=== PATIENT | female | born 1965 | race Caucasian/White ===

== ENCOUNTER 2018-09-09 13:53 | Observation (INO) ==
[2018-09-09 14:29] LABS: Basophils % 0.5 % (0.0-0.8); Eosinophils # 0.1 10*3/uL (0.0-0.87); Eosinophils % 0.7 % (0.00-10.9); Hematocrit 40.5 VOL% (35.7-47.0); Hemoglobin 13.1 GM/DL (12.0-16.0); Immature Granulocytes % 0.5 %; Immature Granulocytes Absolute 0.04 #; Lymphocytes # 1.6 10*3/uL (1.4-4.0); Mean Corpuscular HGB Conc 32.3 GM/DL (32-36); Mean Corpuscular Volume 99.3 FL (87-102); Mean Platelet Volume 11.1 FL (9.6-12.0); Monocytes % 3.6 % (1.7-12.7); Neutrophils % 74.7 % (38.7-73.9); Platelet Count 226 T/CUMM (130-400); Red Blood Count 4.08 MC/CUMM (3.8-5.5); Red Cell Distribution Width 13.5 % (9.3-17.3); White Blood Count 8.1 T/CUMM (4-12)
[2018-09-09] MEDS: NITROGLYCERIN SL 0.4 MG TABLET SL PRN ×2 (14:48→15:13)
[2018-09-09 14:50] LABS: Alanine Aminotransferase 12 U/L (13-56); Albumin 4.1 G/DL (3.4-5.0); Alkaline Phosphatase 87 U/L (45-117); Aspartate Amino Transferase 13 U/L (0-37); Bilirubin,Total < 0.39 MG/DL (0.2-1.0); Blood Urea Nitrogen 7 MG/DL (7-18); Calcium 8.9 MG/DL (8.5-10.1); Glucose 117 MG/DL (74-106); Osmolality,Calculated 281.1 MOS/KG (273-304)
[2018-09-09] MEDS ORDERED: ENOXAPARIN 100 MG/ML SYRINGE SUBCUT STA (14:53)
[2018-09-09] MEDS ORDERED: LACTULOSE 20 GM/30 ML UDCUP PO PRN (16:10)
[2018-09-09] MEDS ORDERED: ACETAMINOPHEN 325 MG TABLET PO PRN (16:10)
[2018-09-09] MEDS ORDERED: ONDANSETRON 4 MG/2 ML VIAL IV PRN (16:10)
[2018-09-09] MEDS ORDERED: ALBUTEROL/IPRATROPIUM 3 ML NEB RESP TX PRN (16:57)
[2018-09-09 17:14] LABS: Risk Ratio 2.33; Thyroid Stimulating Hormone 0.853 uIU/ml (0.358-3.74); VLDL CHOLESTEROL 20.4 MG/DL
[2018-09-09 19:14] LABS: Apearance,Urine CLEAR (Clear); Bilirubin,Urine Negative (Negative); Blood, Urine Negative (Negative); Glucose,Urine (UA) Negative (Negative); Ketones,Urine Negative (Negative); Nitrite,Urine Negative (Negative); Protein,Urine Negative; RBC,Urine 1 /HPF (0-4); Squamous Epithelial Cell,Urine Occasional /HPF (0-10); Urine Color Straw (Yellow); Urine Specific Gravity 1.026 (1.001-1.035); Urine Urobilinogen < 2.0 EU/DL (0.2-1.0); WBC,Urine <1 /HPF (0-6)
[2018-09-09] MEDS: NICOTINE 21 MG/24 HR PATCH TRANSDERM SCH (20:50)
[2018-09-09] MEDS ORDERED: ENOXAPARIN 40 MG/0.4 ML SYRINGE SUBCUT SCH (21:00)
[2018-09-09 22:42] LABS: Barbiturates Screen,Urine Negative (Negative); Benzodiazepines Screen,Urine Negative (Negative); Cannabinoid Screen,Urine Negative (Negative); Opiate Screen,Urine Positive (Negative); Phencyclidine Screen,Urine Negative (Negative)
[2018-09-10] MEDS ORDERED: ZALEPLON 5 MG CAPSULE PO PRN (00:48)
[2018-09-10 05:46] LABS: Basophils % 0.5 % (0.0-0.8); Eosinophils # 0.1 10*3/uL (0.0-0.87); Eosinophils % 1.5 % (0.00-10.9); Hematocrit 38.6 VOL% (35.7-47.0); Hemoglobin 12.3 GM/DL (12.0-16.0); Immature Granulocytes % 0.8 %; Immature Granulocytes Absolute 0.06 #; Lymphocytes # 3.9 10*3/uL (1.4-4.0); Mean Corpuscular HGB Conc 31.9 GM/DL (32-36); Mean Corpuscular Volume 100.3 FL (87-102); Mean Platelet Volume 11.3 FL (9.6-12.0); Neutrophils % 41.2 % (38.7-73.9); Platelet Count 216 T/CUMM (130-400); Red Blood Count 3.85 MC/CUMM (3.8-5.5); Red Cell Distribution Width 13.7 % (9.3-17.3); White Blood Count 7.9 T/CUMM (4-12)
[2018-09-10 06:37] LABS: Calcium 8.4 MG/DL (8.5-10.1); Osmolality,Calculated 280.1 MOS/KG (273-304)
[2018-09-10] MEDS ORDERED: ASPIRIN CHEW 81 MG TABLET PO SCH (09:00)
[2018-09-10] MEDS ORDERED: PANTOPRAZOLE 40 MG TABLET PO SCH (09:00)
[2018-09-10] MEDS: NICOTINE 21 MG/24 HR PATCH TRANSDERM SCH (09:51)
[2018-09-10 12:10] VITALS: BP 131/77
[2018-09-10] MEDS ORDERED: EZETIMIBE 10 MG TABLET PO SCH (21:00)
== END 2018-09-10 13:50 | disposition home or self-care (01) ==
LOC: N.EDINP 13:53 → N.ED 13:53 → N.2E 18:10
PROVIDERS: ADMIT Internal Medicine; ATTEND Internal Medicine

== ENCOUNTER 2022-06-24 09:38 | Observation (INO) ==
[2022-06-24] MEDS ORDERED: PANTOPRAZOLE 40 MG VIAL IV STA (10:07)
[2022-06-24] MEDS ORDERED: SODIUM CHLORIDE 0.9% 1,000 ML IV STA ×2 (10:07→12:26)
[2022-06-24 10:34] LABS: Basophils # 0.1 10*3/uL (0.0-0.2); Basophils % 0.7 % (0.0-0.8); Eosinophils % 0.2 % (0.00-10.9); Hematocrit 36.3 VOL% (35.7-47.0); Hemoglobin 11.5 GM/DL (12.0-16.0); Immature Granulocytes % 1.1 %; Immature Granulocytes Absolute 0.09 #; Lymphocytes # 1.7 10*3/uL (1.4-4.0); Lymphocytes % 20.7 % (21.3-54.2); Mean Corpuscular HGB Conc 31.7 GM/DL (32-36); Mean Corpuscular Volume 100.8 FL (87-102); Mean Platelet Volume 8.8 FL (9.6-12.0); Monocytes # 0.8 10*3/uL (0.11-0.8); Neutrophils % 67.3 % (38.7-73.9); Platelet Count 422 T/CUMM (130-400); Red Cell Distribution Width 13.2 % (9.3-17.3); White Blood Count 8.23 T/CUMM (4-12)
[2022-06-24 10:43] LABS: PT Patient Result 10.9 SECS (10.1-12.1)
[2022-06-24 10:55] LABS: Alanine Aminotransferase 18 U/L (13-56); Albumin 1.7 G/DL (3.4-5.0); Alkaline Phosphatase 110 U/L (45-117); Aspartate Amino Transferase 15 U/L (0-37); Bilirubin,Total < 0.39 MG/DL (0.20-1.00); Blood Urea Nitrogen 11 MG/DL (7-18); Calcium 8.2 MG/DL (8.5-10.1); Carbon Dioxide 24 MMOL/L (21-32); Chloride 101 MMOL/L (98-107); Glucose 96 MG/DL (74-106); Osmolality,Calculated 266.2 MOS/KG (273-304); Potassium 3.4 MMOL/L (3.5-5.1); Sodium 134 MMOL/L (136-145); Total Protein 5.7 G/DL (6.4-8.2)
[2022-06-24 11:08] LABS: Band Neutrophils 13 % (0-10); Eosinophils 2 % (0-10); Lymphocytes 23 % (20-55); Platelet Estimate Normal; Total Cells Counted 100
[2022-06-24 11:09] LABS: Anisocytosis 1+; Burr Cells Few; Macrocytosis 1+
[2022-06-24] MEDS ORDERED: MORPHINE 2 MG/1 ML SYRINGE IV ONE ×2 (11:32→11:33)
[2022-06-24 12:47] LABS: Mucus,Urine Occasional /LPF (Occasional); RBC,Urine 5 /HPF (0-4); Squamous Epithelial Cell,Urine Occasional /HPF (0-10); Urine Appearance Clear (Clear); Urine Color Yellow (Yellow)
[2022-06-24 12:48] LABS: Bilirubin,Urine Negative (Negative); Blood, Urine Negative (Negative); Glucose,Urine (UA) Negative (Negative); Ketones,Urine 40 mg/dL (Negative); Nitrite,Urine Negative (Negative); Protein,Urine Negative (Negative); Urine Urobilinogen 0.2 eU/dL (<2.0)
[2022-06-24] MEDS ORDERED: cefTRIAXone 1,000 MG in SODIUM CHLORIDE 0.9% 100 ML IV STA (13:03)
[2022-06-24] MEDS ORDERED: KETOROLAC 30 MG/1 ML VIAL IV ONE (13:04)
[2022-06-24] MEDS ORDERED: ACETAMINOPHEN 325 MG TABLET PO PRN (13:57)
[2022-06-24] MEDS ORDERED: ONDANSETRON 4 MG/2 ML VIAL IV PRN (13:57)
[2022-06-24] MEDS ORDERED: POTASSIUM CHLORIDE 20 MEQ TABLET PO STA (14:01)
[2022-06-24 14:48] LABS: % Iron Saturation 18.1 % (18-50)
[2022-06-24 14:52] LABS: Ferritin 464.3 ng/mL (8-252)
[2022-06-24] MEDS ORDERED: DIAZEPAM 5 MG TABLET PO ONE (14:55)
[2022-06-24] MEDS ORDERED: MIDAZOLAM 2 MG/2 ML VIAL IV ONE (15:18)
[2022-06-24] MEDS ORDERED: fentaNYL 100 MCG/2 ML VIAL IV ONE (15:18)
[2022-06-24] MEDS: oxyCODONE/ACETAMINOPHEN 5-325 MG TABLET PO PRN (17:33)
[2022-06-24] MEDS: SODIUM CHLORIDE 0.45% 1,000 ML IV SCH (17:33)
[2022-06-24] MEDS: carvediloL 12.5 MG TABLET PO SCH (17:33)
[2022-06-24] MEDS: SODIUM CHLORIDE 0.9% 1,000 ML IV SCH ×2 (17:34→22:00)
[2022-06-24] MEDS: ALBUTEROL/IPRATROPIUM 3 ML NEB RESP TX SCH (19:39)
[2022-06-24] MEDS: THEOPHYLLINE ER (24 HR) 300 MG CAPSULE PO SCH (20:56)
[2022-06-24] MEDS: ZALEPLON 5 MG CAPSULE PO SCH (20:57)
[2022-06-25] MEDS: ALBUTEROL/IPRATROPIUM 3 ML NEB RESP TX SCH ×4 (01:00→21:03)
[2022-06-25 05:06] LABS: Basophils % 0.4 % (0.0-0.8); Eosinophils % 0.3 % (0.00-10.9); Hemoglobin 9.5 GM/DL (12.0-16.0); Immature Granulocytes % 0.8 %; Immature Granulocytes Absolute 0.06 #; Lymphocytes # 1.2 10*3/uL (1.4-4.0); Mean Corpuscular HGB Conc 31.7 GM/DL (32-36); Mean Platelet Volume 8.5 FL (9.6-12.0); Monocytes # 0.6 10*3/uL (0.11-0.8); Monocytes % 8.4 % (1.7-12.7); Neutrophils % 74.1 % (38.7-73.9); Platelet Count 402 T/CUMM (130-400); Red Cell Distribution Width 13.5 % (9.3-17.3)
[2022-06-25 05:28] LABS: Band Neutrophils 5 % (0-10); Eosinophils 1 % (0-10); Lymphocytes 16 % (20-55); Metamyelocytes 1 %; Total Cells Counted 100
[2022-06-25 05:33] LABS: Alanine Aminotransferase 16 U/L (13-56); Albumin 1.3 G/DL (3.4-5.0); Alkaline Phosphatase 81 U/L (45-117); Aspartate Amino Transferase 15 U/L (0-37); Bilirubin,Total < 0.39 MG/DL (0.20-1.00); Blood Urea Nitrogen 8 MG/DL (7-18); Calcium 6.8 MG/DL (8.5-10.1); Carbon Dioxide 20 MMOL/L (21-32); Chloride 111 MMOL/L (98-107); Glucose 68 MG/DL (74-106); Osmolality,Calculated 270.7 MOS/KG (273-304); Potassium 3.1 MMOL/L (3.5-5.1); Sodium 138 MMOL/L (136-145); Thyroid Stimulating Hormone 0.791 uIU/ml (0.358-3.74); Total Protein 4.6 G/DL (6.4-8.2)
[2022-06-25] MEDS: oxyCODONE/ACETAMINOPHEN 5-325 MG TABLET PO PRN (06:16)
[2022-06-25] MEDS: SODIUM CHLORIDE 0.45% 1,000 ML IV SCH (06:37)
[2022-06-25] MEDS: carvediloL 12.5 MG TABLET PO SCH ×2 (08:16→17:07)
[2022-06-25] MEDS: PANTOPRAZOLE 40 MG TABLET PO SCH (08:16)
[2022-06-25] MEDS: THEOPHYLLINE ER (24 HR) 300 MG CAPSULE PO SCH ×2 (08:18→21:16)
[2022-06-25] MEDS: SODIUM CHLORIDE 0.9% 1,000 ML IV SCH ×4 (08:53→21:11)
[2022-06-25] MEDS: POTASSIUM CHLORIDE 20 MEQ TABLET PO SCH ×2 (09:37→12:30)
[2022-06-25] MEDS: DOCUSATE SODIUM 100 MG CAPSULE PO SCH ×2 (09:37→21:17)
[2022-06-25] MEDS: FERROUS SULFATE 325 MG TABLET PO SCH ×2 (09:37→17:07)
[2022-06-25] MEDS: MORPHINE 2 MG/1 ML SYRINGE IV PRN ×2 (12:30→17:07)
[2022-06-25] MEDS ORDERED: POTASSIUM CHLORIDE 20 MEQ TABLET PO SCH (12:30)
[2022-06-25] MEDS ORDERED: cefTRIAXone 1,000 MG in SODIUM CHLORIDE 0.9% 100 ML IV SCH (13:00)
[2022-06-25] MEDS: ZALEPLON 5 MG CAPSULE PO SCH (21:17)
[2022-06-26] MEDS: oxyCODONE/ACETAMINOPHEN 5-325 MG TABLET PO PRN (02:33)
[2022-06-26] MEDS: ALBUTEROL/IPRATROPIUM 3 ML NEB RESP TX SCH ×2 (03:11→07:30)
[2022-06-26] MEDS: MORPHINE 2 MG/1 ML SYRINGE IV PRN (05:59)
[2022-06-26 06:34] LABS: Basophils % 0.6 % (0.0-0.8); Eosinophils % 0.1 % (0.00-10.9); Hematocrit 30.4 VOL% (35.7-47.0); Hemoglobin 9.4 GM/DL (12.0-16.0); Immature Granulocytes % 1.4 %; Lymphocytes # 1.6 10*3/uL (1.4-4.0); Lymphocytes % 23.5 % (21.3-54.2); Mean Corpuscular HGB Conc 30.9 GM/DL (32-36); Mean Corpuscular Volume 100.3 FL (87-102); Mean Platelet Volume 8.5 FL (9.6-12.0); Monocytes # 0.6 10*3/uL (0.11-0.8); Monocytes % 8.9 % (1.7-12.7); Neutrophils % 65.5 % (38.7-73.9); Platelet Count 468 T/CUMM (130-400); Red Blood Count 3.03 MC/CUMM (3.8-5.5); Red Cell Distribution Width 13.8 % (9.3-17.3); White Blood Count 6.97 T/CUMM (4-12)
[2022-06-26 06:45] LABS: Calcium 7.1 MG/DL (8.5-10.1); Potassium 3.8 MMOL/L (3.5-5.1)
[2022-06-26 06:58] LABS: Band Neutrophils 3 % (0-10); Eosinophils 1 % (0-10); Lymphocytes 19 % (20-55); Platelet Estimate Adequate; Total Cells Counted 100
[2022-06-26] MEDS: SODIUM CHLORIDE 0.9% 1,000 ML IV SCH (08:26)
[2022-06-26] MEDS: THEOPHYLLINE ER (24 HR) 300 MG CAPSULE PO SCH (09:20)
[2022-06-26] MEDS: carvediloL 12.5 MG TABLET PO SCH (09:20)
[2022-06-26] MEDS: PANTOPRAZOLE 40 MG TABLET PO SCH (09:20)
[2022-06-26] MEDS: FERROUS SULFATE 325 MG TABLET PO SCH (09:20)
[2022-06-26] MEDS: DOCUSATE SODIUM 100 MG CAPSULE PO SCH (09:20)
[2022-06-26 12:46] VITALS: BP 111/73
== END 2022-06-26 11:44 | disposition home health service (06) ==
LOC: N.ED 09:38 → INTOOBSV 13:58 → N.EDINP 13:58 → N.3E 16:44
PROVIDERS: ADMIT Internal Medicine; ATTEND Internal Medicine